=== PATIENT | female | born 1985 | race Caucasian/White ===

== ENCOUNTER → 2017-04-22 | Outpatient (CLI) | payer OTHER ==
[~2017-04-22] MED LIST: ANUSOL HC30 GM PO; BACTRIM DS 8001 TA1 PO; DOXYCYCLINE MO100 MG PO; FLEXERIL5 MG PO; KEFLEX500 MG PO; MEDROL DOSEPAK4 MG PO; METOPROLOL SR50 MG PO; MIRALAX17 GM PO; MOTRIN800 MG PO; Metformin Hydr500 MG PO; NAPROSYN500 MG PO; PRENATAL1 TA3 PO; PREVIFEM 35 MCG1 TA1 PO; PROAIR HFA0.09 MG/AC IH; ROBAXIN500 MG PO; SPRINTEC 35 MCG1 TA1 PO; VICODIN 5/500 505 MG PO; ZANTAC 150150 MG PO
== END | disposition home or self-care (01) ==
LOC: RAD 16:20
DX: M25.511 Pain in right shoulder (principal)

== ENCOUNTER → 2017-06-03 | Outpatient (CLI) | payer OTHER | END | disposition home or self-care (01) | LOC: US 07:30 | DX: R59.0 Localized enlarged lymph nodes (principal); N64.9 Disorder of breast, unspecified ==

== ENCOUNTER 2017-08-30 22:29 | Emergency (ER) | payer OTHER ==
[~2017-08-30] VITALS: Ht 170.1 cm; Wt 140.6 kg
[2017-08-30] MEDS ORDERED: NORVASC5 MG PO (22:37)
[2017-08-30] MEDS ORDERED: CLONIDINE1 EACH PO (22:38)
== END 2017-08-30 23:52 | disposition home or self-care (01) ==
LOC: ED 22:29
DX: S61.012A Laceration without foreign body of left thumb without damage to nail, initial encounter (principal); Z88.1 Allergy status to other antibiotic agents; Z88.5 Allergy status to narcotic agent; Z88.8 Allergy status to other drugs, medicaments and biological substances; Z91.013 Allergy to seafood; Z79.899 Other long term (current) drug therapy; W27.8XXA Contact with other nonpowered hand tool, initial encounter; Y93.89 Activity, other specified; Y92.89 Other specified places as the place of occurrence of the external cause; Y99.8 Other external cause status

== ENCOUNTER → 2017-12-16 | Outpatient (CLI) | payer OTHER ==
[~2017-12-16] MED LIST changes: +CLONIDINE1 EACH PO; +NORVASC5 MG PO
== END ==
LOC: US 13:43
DX: N63.10 Unspecified lump in the right breast, unspecified quadrant (principal); M25.511 Pain in right shoulder; N64.4 Mastodynia

== ENCOUNTER → 2018-08-19 | Outpatient (CLI) | payer OTHER | END | disposition home or self-care (01) | LOC: US 10:00 | DX: K82.8 Other specified diseases of gallbladder (principal) ==

== ENCOUNTER → 2018-10-19 | Outpatient (CLI) | payer OTHER | END | disposition home or self-care (01) | LOC: US 09:08 | DX: R59.1 Generalized enlarged lymph nodes (principal) ==

== ENCOUNTER 2019-07-23 03:52 | Emergency (ER) | payer BC, OTHER ==
[~2019-07-23] VITALS: Ht 170.1 cm; Wt 132.0 kg
[2019-07-23] MEDS ORDERED: CYCLOBENZAPRINE5 M3 PO (05:43)
[2019-07-23] MEDS ORDERED: MIXED AMPHETAMI20 MG PO (05:54)
== END 2019-07-23 05:57 | disposition home or self-care (01) ==
LOC: ED 03:52
DX: S16.1XXA Strain of muscle, fascia and tendon at neck level, initial encounter (principal); S00.03XA Contusion of scalp, initial encounter; J45.909 Unspecified asthma, uncomplicated; Z87.891 Personal history of nicotine dependence; Z88.1 Allergy status to other antibiotic agents; Z91.048 Other nonmedicinal substance allergy status; Z88.6 Allergy status to analgesic agent; Z91.013 Allergy to seafood; Z79.899 Other long term (current) drug therapy; W06.XXXA Fall from bed, initial encounter; Y93.89 Activity, other specified; Y92.098 Other place in other non-institutional residence as the place of occurrence of the external cause; Y99.8 Other external cause status